=== PATIENT | male | born 1995 | race Caucasian/White ===

== ENCOUNTER 2016-12-26 11:09 | Emergency (ER) | payer MEDICAID ==
--- OUTSIDE RECORDS SUMMARY | 2016-12-26 11:46 | XMS REPORT | Continuity of Care Document ---
:1995 Author Organization [facility] ([facility]) Address [address] [place] [address] Phone [phone] Care Team Providers Name Role Phone Unavailable Primary Care Provider Unavailable Source Comments This disclosure is being made pursuant to the Care Everywhere program, applicable federal and state laws, and may not contain all informaitonavailable regarding this patient.[facility] ([facility]) Active Allergies and Adverse Reactions Not on File Current Medications Not on file Active Problems Not on file Social History Tobacco Use Types Packs/Day Years Used Date Never Assessed Plan of Care Health Maintenance Due Date Last Done Comments Hepatitis B Vaccine (1 of 3 - Primary Series) 1993 HPV Vaccine (1 of 3 - Male 3 Dose Series) 2004 Tdap Vaccine 2004 Lipid Disorder Screening 2011 MMR Vaccine 2011 Td Vaccine 2011 Varicella Vaccine (1 of 2 - Adult - No Evidence of 2011 Immunity) Influenza Vaccine: Seasonal (#1) 03/06/2016 Results from Last 3 Months Not on file
--- NOTE | 2016-12-26 12:03 | ERNOTE ---
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 He now complains of minor pain in both eyes and it hurts somewhat when he blinks. The pain and discomfort and perhaps a 2 on a scale of 1-10. Severity: Present: mild ENT Location: Present: eye (R), eye (L) Prearrival Treatment: Present: no prearrival treatment Associated Symptoms - ENT: Reports: denies symptoms Review of Systems - Review of Systems Constitutional: Present: See HPI EYE: Present: eye pain ENT: Present: no symptoms reported Respiratory: Present: no symptoms reported Cardiology: Present: no symptoms reported Gastrointestinal/Abdominal: Present: no symptoms reported Genitourinary: Present: no symptoms reported Musculoskeletal: Present: no symptoms reported Skin: Present: no symptoms reported Neurological: Present: no symptoms reported Endocrine: Present: no symptoms reported Hematologic/Lymphatic: Present: no symptoms reported Psych: Present: no symptoms reported - Patient's Past Medical History Patient History - Medical: No pertinent hx Patient History - Cardiac/Respiratory: No pertinent hx Patient History - Cancer: No Hx of Cancer Patient History - Surgical Procedures: No surgical history Patient History - Other: None - Social History Living Situations: spouse Abuse History: No History of abuse Psych History: No pertinent hx Smoking Status: Current every day smoker Have you smoked in the past 12 months: Yes Do you dip or chew tobacco: No Alcohol Use: heavy Drug Use: none - Immunizations Immunizations Up to Date: Yes History of Influenza Vaccine: Yes Physical Exam - Physical Exam General Appearance: Present: wd/wn, alert, mild distress Eye Exam: Normal inspection: bilateral, PERRL: bilateral, EOMI: bilateral Ears, Nose, Throat: Present: normal ENT inspection, H, normal pharynx Neck: Present: normal inspection, nontender Respiratory: Present: no respiratory distress, normal breath sounds, no accessory muscle use, chest nontender, lungs clear Cardiovascular/Chest: Present: regular rate, rhythm, no murmur, normal peripheral pulses Gastrointestinal/Abdominal: Present: normal bowel sounds, nontender, nondistended, soft, no organomegaly Rectal Exam: Present: deferred Back Exam: Present: normal inspection, normal range of motion Extremity Exam: Present: normal inspection, non-tender, no edema, normal range of motion Neurological Exam: Present: alert, oriented, normal mood/affect Skin Exam: Present: normal color, warm/dry Lymphatic Exam: Present: no adenopathy ED Progress - Vital Signs Patient's Vital Signs:: I have reviewed the patient's vital signs. Vital Signs: Vital Signs 12/26/16 11:20 Temperature 36.4 C L Pulse Rate 99 Respiratory 16 Rate Blood Pressure 159/95 O2 Sat by Pulse 99 Oximetry - Progress/Reassessment Chief Complaint: Eye Injury/Trauma Plan - Plan Plan: Patient prefer to have the day off to allow his eyes and opportunity to recover. He states his eyes are vastly improved from yesterday and improving rapidly already. Departure Clinical Impression: Flash burn of both eyes - Departure Disposition: Home self-care Condition: Good Instructions: How to Use Eye Drops and Eye Ointments Prescriptions: prednisoLONE ACETATE [Pred Forte 1%] 1 drop EACHEYE QID #5 ml
[2016-12-26 12:16] VITALS: BP 158/90
== END 2016-12-26 12:18 | disposition home or self-care (01) ==
LOC: ER 11:09
DX: H16.133 Photokeratitis, bilateral (principal); F17.200 Nicotine dependence, unspecified, uncomplicated; Y93.H3 Activity, building and construction; Y92.89 Other specified places as the place of occurrence of the external cause; Y99.0 Civilian activity done for income or pay

== ENCOUNTER 2017-01-22 05:26 | Emergency (ER) | payer MEDICAID ==
[2017-01-22 05:35] VITALS: BP 158/91
--- NOTE | 2017-01-22 05:43 | ERNOTE ---
Integumentary HPI - Narrative Date of Service: 01/22/17 - General Presenting Symptoms: rash Time Seen by Provider: 01/22/17 05:42 Source: patient Exam Limitations: no limitations - Immun/Allergies/Home Medications Immunizations: IMMUNIZATION HX Immunizations Up to Date Yes History of Influenza Vaccine Yes Allergies/Adverse Reactions: Allergies Allergy/AdvReac Type Severity Reaction Status Date / Time doxycycline Allergy Unknown Verified 12/26/16 11:27 Home Medications: HOME MEDICATIONS Sulfamethoxazole/Trimethoprim [Bactrim Ds] 1 tab PO BID #20 tab 01/22/17 [Last Taken Unknown] - History of Present Illness Narrative: PT C/O RASH HE JUST NOTICED ON HIS LEG. HE SAYS IT STARTED YESTERDAY AND THAT HE WAS INSIDE ALL DAY. HE DOES HAVE PETS AT HOME BUT DOES NOT THINK THEY HAVE FLEAS AND IS NOT AWARE OF ANY OTHER INSECTS IN THE HOUSE. THE RASH WAS BEEN GETTING BIGGER AND MORE SWELLING AND SEEMS TO HAVE A SMALL HEAD WITH DRAINAGE AND HE NOTICES A NEW ONE LOWER ON HIS LEG TODAY. 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 HE DENIES OTHER HEALTH PROBLEMS. Location: Reports: lower extremity Quality: Reports: painful Severity: moderate Exposure: Reports: no cause identified Associated Symptoms: Reports: denies symptoms Review of Systems - Review of Systems Constitutional: Present: See HPI Skin: Present: See HPI All Other Systems: All systems neg except as marked - Patient's Past Medical History Patient History - Medical: No pertinent hx Patient History - Cardiac/Respiratory: No pertinent hx Patient History - Cancer: No Hx of Cancer Patient History - Surgical Procedures: No surgical history Patient History - Other: None - Social History Living Situations: spouse Abuse History: No History of abuse Psych History: No pertinent hx Smoking Status: Current every day smoker Have you smoked in the past 12 months: Yes Do you dip or chew tobacco: No Alcohol Use: heavy Drug Use: none - Immunizations Immunizations Up to Date: Yes History of Influenza Vaccine: Yes Physical Exam - Physical Exam General Appearance: Present: wd/wn, alert, no apparent distress Skin Exam: Present: skin rash - HE HAS AN OVAL SHAPED SL RAISED RED AREA TO HIS LEFT LATERAL UPPER THIGH THAT IS TENDER WITH A CENTRAL TINY WHITE HEAD THAT IS DRAINING A SMALL AMOUNT OF PUS . THIS AREA IS ABOUT 6X 4 CM AND WARM TO TOUCH. THERE IS A QUARTER SIZE LESS RED , LESS SWOLLEN AREA STARTING DISTAL TO THE FIRST ABOUT 4 CM LOWER THAN THE FIRST , ALSO WITH A TINY PUNCTATE RAISED AREA . MY FIRST IMPRESSSION THAT THESE ARE BUG BITES THOUGH THEY MAY REPRESENT A FOLLICULITIS. CULTURE WAS TAKEN FROM THE CENTER OF THE LARGER AREA. ED Progress - Vital Signs Vital Signs: Vital Signs 01/22/17 05:29 Temperature 36.8 C Pulse Rate 58 L Respiratory 14 Rate Blood Pressure 158/91 O2 Sat by Pulse 97 Oximetry - Progress/Reassessment Chief Complaint: Rash Departure Clinical Impression: Folliculitis - Departure Disposition: Home self-care Condition: Good Instructions: Impetigo, Adult Additional Instructions: CLEAN AREA WITH SOAP AND WATER 2-3 TIMES A DAY. PAT DRY AND APPLY TRIPLE ANTIBIOTIC OINTMENT. TAKE THE ORAL ANTIBIOTIC DIRECTED. RECHECK IF WORSE INSTEAD OF IMPROVING. CHECK YOUR PETS TO SEE IF YOU COULD HAVE FLEAS THAT LED TO AN INFECTED LOOKING BUG BITE. THERE IS A CULTURE PENDING AND WE WILL CALL YOU IF THE RESULTS SUGGEST A DIFFERENT ANTIBIOTIC WOULD BE BETTER. Prescriptions: Sulfamethoxazole/Trimethoprim [Bactrim Ds] 1 tab PO BID #20 tab
--- OUTSIDE RECORDS SUMMARY | 2017-01-22 06:10 | XMS REPORT | Continuity of Care Document ---
:1995 Author Organization [facility] ([facility]) Address [address] [place] [address] Phone [phone] Care Team Providers Name Role Phone Unavailable Primary Care Provider Unavailable Source Comments This disclosure is being made pursuant to the Care Everywhere program, applicable federal and state laws, and may not contain all informaitonavailable regarding this patient.[facility] ([facility]) Active Allergies and Adverse Reactions Not on [...]
== END 2017-01-22 05:55 | disposition home or self-care (01) ==
LOC: ER 05:26
DX: L73.9 Follicular disorder, unspecified (principal); F17.200 Nicotine dependence, unspecified, uncomplicated

== ENCOUNTER 2017-01-24 10:31 | Emergency (ER) | payer MEDICAID ==
[2017-01-24 10:41] VITALS: BP 157/86
[2017-01-24] MEDS ORDERED: CLINDAMYCIN PHOSPHATE 150 MG/ML VIAL IM ONE ×2 (10:56→11:00)
--- NOTE | 2017-01-24 11:18 | ERNOTE ---
Integumentary HPI - Narrative Date of Service: 01/24/17 - General Presenting Symptoms: abscess Time Seen by Provider: 01/24/17 10:43 Source: patient Exam Limitations: no limitations - Immun/Allergies/Home Medications Immunizations: IMMUNIZATION HX Immunizations Up to Date Yes History of Influenza Vaccine Yes Allergies/Adverse Reactions: Allergies Allergy/AdvReac Type Severity Reaction Status Date / Time doxycycline Allergy Unknown Verified 01/24/17 10:42 Home Medications: HOME MEDICATIONS Sulfamethoxazole/Trimethoprim [Bactrim Ds] 1 tab PO BID #20 tab 01/22/17 [Last Taken Unknown] - History of Present Illness Narrative: Pt. comes in with increased redness swelling and induration around a known abscess that was drained here two days ago. Pt. was placed on Bactrim two days ago and states that this is not improving. Pt. denies any fever, SOB, CP, NVD, aggravating factors or alleviating factors despite taking tylenol. Review of Systems - Review of Systems Constitutional: Present: no symptoms reported. Absent: recent illness, fever, chills, weakness, fatigue, malaise EYE: Present: no symptoms reported ENT: Present: no symptoms reported Respiratory: Present: no symptoms reported. Absent: shortness of breath, cough , wheezing Cardiology: Present: no symptoms reported. Absent: chest pain, palpitations, edema Gastrointestinal/Abdominal: Present: no symptoms reported. Absent: nausea, vomiting, diarrhea Genitourinary: Present: no symptoms reported Musculoskeletal: Present: no symptoms reported. Absent: back pain, joint pain Skin: Present: lesions - Abscess L post leg Neurological: Present: no symptoms reported. Absent: headache, dizziness/light- headedness, numbness, tingling All Other Systems: All systems neg except as marked - Patient's Past Medical History Patient History - Medical: No pertinent hx Patient History - Cardiac/Respiratory: No pertinent hx Patient History - Cancer: No Hx of Cancer Patient History - Surgical Procedures: No surgical history Patient History - Other: None - Social History Living Situations: spouse Abuse History: No History of abuse Psych History: No pertinent hx Smoking Status: Current every day smoker Alcohol Use: heavy Drug Use: none - Immunizations Immunizations Up to Date: Yes History of Influenza Vaccine: Yes Physical Exam - Physical Exam General Appearance: Present: wd/wn, alert, no apparent distress Eye Exam: Normal inspection: bilateral, PERRL: bilateral, EOMI: bilateral Ears, Nose, Throat: Present: normal ENT inspection, normal pharynx Neck: Present: normal inspection, nontender. Absent: lymphadenopathy (R), lymphadenopathy (L) Respiratory: Present: no respiratory distress, normal breath sounds, no accessory muscle use, chest nontender, lungs clear Cardiovascular/Chest: Present: regular rate, rhythm, no murmur, normal peripheral pulses Back Exam: Present: normal inspection, normal range of motion, no CVA tenderness , no vertebral tenderness Extremity Exam: Present: non-tender, normal range of motion, no edema Neurological Exam: Present: alert, oriented, normal mood/affect, no motor/ sensory deficits Skin Exam: Present: normal color, warm/dry, other - red, erythematous, edematous lesion 3cm in diameter L post thich 0.4 mm larger than marking surounding lesion ED Progress - Date and Time Seen: Date and Time: 01/24/17 11:15 As this is worsening will give IM injection of clidamycin to help quickly eradicate MRSA and Bactrim should start working tomorrow or sunday and it had the greatest suseptibility on micro so I do not feel that changing abx completely is a good idea. - Vital Signs Patient's Vital Signs:: I have reviewed the patient's vital signs. Vital Signs: Vital Signs 01/24/17 10:37 Temperature 36.8 C Pulse Rate 73 Respiratory 14 Rate Blood Pressure 157/86 O2 Sat by Pulse 97 Oximetry - Progress/Reassessment Chief Complaint: Lower Extremity Pain/ Injury Departure Clinical Impression: MRSA (methicillin resistant Staphylococcus aureus) infection - Departure Disposition: Home self-care Condition: Good Instructions: Community-Associated MRSA, Contact Precautions, [id number], Form - Excuse from Work, School, or Physical Activity Additional Instructions: Please follow up with primary provider in 2-3 days.
== END 2017-01-24 11:44 | disposition home or self-care (01) ==
LOC: ER 10:31
DX: L02.416 Cutaneous abscess of left lower limb (principal); B95.62 Methicillin resistant Staphylococcus aureus infection as the cause of diseases classified elsewhere; F17.210 Nicotine dependence, cigarettes, uncomplicated

== ENCOUNTER 2017-01-26 19:11 | Emergency (ER) | payer MEDICAID ==
[2017-01-26] MEDS ORDERED: TETRACAINE HCL 150 DROP BTL ONE (19:25)
[2017-01-26] MEDS ORDERED: HYDROcodone/ACETAMINOPHEN 1 EACH TABLET PO ONE ×2 (20:16→20:17)
[2017-01-26] MEDS ORDERED: GENTAMICIN SULFATE 3.5 APPL TUBE EACHEYE ONE (20:17)
--- NOTE | 2017-01-26 20:20 | ERNOTE ---
ENT HPI Date of Service: 01/26/17 Presenting Symptoms: eye pain Time Seen by Provider: 01/26/17 20:04 Source: patient, family, RN notes reviewed Exam Limitations: no limitations - Immun/Allergies/Home Medications Immunizations: IMMUNIZATION HX Immunizations Up to Date Yes History of Influenza Vaccine No Allergies/Adverse Reactions: Allergies Allergy/AdvReac Type Severity Reaction Status Date / Time doxycycline Allergy Unknown Verified 01/26/17 19:21 Home Medications: HOME MEDICATIONS Sulfamethoxazole/Trimethoprim [Bactrim Ds] 1 tab PO BID #20 tab 01/22/17 [Last Taken Unknown] - History of Present Illness Narrative: 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 Reports taking a nap and then having severe eye pain when he woke up. Date (Duration): 01/26/17 ENT Location: Present: eye (R), eye (L) Prearrival Treatment: Present: no prearrival treatment Prior Treament: Reports: similar symptoms before Review of Systems - Review of Systems Constitutional: Absent: recent illness, fever, malaise EYE: Present: eye pain. Absent: eye discharge ENT: Absent: ear pain, nose congestion, sore throat Respiratory: Absent: shortness of breath, cough Cardiology: Present: no symptoms reported Gastrointestinal/Abdominal: Absent: nausea, abdominal pain Genitourinary: Present: no symptoms reported Musculoskeletal: Absent: muscle pain, neck pain Skin: Absent: rash, lesions Neurological: Absent: headache, dizziness/light-headedness Endocrine: Present: no symptoms reported Hematologic/Lymphatic: Present: no symptoms reported Psych: Present: no symptoms reported - Patient's Past Medical History Patient History - Medical: No pertinent hx Patient History - Cardiac/Respiratory: No pertinent hx Patient History - Cancer: No Hx of Cancer Patient History - Surgical Procedures: No surgical history Patient History - Other: None - Social History Living Situations: home Abuse History: No History of abuse Psych History: No pertinent hx Smoking Status: Current every day smoker Alcohol Use: heavy Drug Use: none - Immunizations Immunizations Up to Date: Yes - tetanus vaccine in 2016 History of Influenza Vaccine: No Physical Exam - Physical Exam General Appearance: Present: wd/wn, alert, mild distress Eye Exam: PERRL: bilateral, EOMI: bilateral, Photophobia: bilateral Neck: Present: normal inspection, nontender, supple Respiratory: Present: no respiratory distress, normal breath sounds, no accessory muscle use, lungs clear Cardiovascular/Chest: Present: regular rate, rhythm, no murmur, normal peripheral pulses Neurological Exam: Present: alert, oriented, normal mood/affect, no motor/ sensory deficits Skin Exam: Present: normal color, warm/dry ED Progress - Vital Signs Patient's Vital Signs:: I have reviewed the patient's vital signs. Vital Signs: Vital Signs 01/26/17 19:17 Temperature 37.2 C Pulse Rate 62 Respiratory 18 Rate Blood Pressure 158/104 O2 Sat by Pulse 98 Oximetry - Progress/Reassessment Chief Complaint: Eye Injury/Trauma Progress:: Improved Procedures Eye Location: both eyes Tetracaine Drops Administered: Yes Eye - Cornea: Bilateral: examined w/fluorescein, nml inspection Antibiotic Ointment/Drps Admin: both eyes Complications: Pt bebe procedure well Departure Clinical Impression: Flash burn of both eyes - Departure Disposition: Home Follow Up Needed Condition: Stable Additional Instructions: See your eye doctor on Sunday if symptoms have not resolved Ibuprofen for pain - 3 tablets every 6 hours with food Use eye drops as directed on label
[2017-01-26] MEDS ORDERED: oxyCODONE HCL/ACETAMINOPHEN 1 TAB TABLET ONE (20:24)
[2017-01-26] MEDS ORDERED: GENTAMICIN SULFATE 50 DROP BTL ONE (20:25)
[2017-01-26] MEDS ORDERED: HYDROcodone/ACETAMINOPHEN 1 EACH TABLET ONE (20:36)
[2017-01-26 20:48] VITALS: BP 132/84
== END 2017-01-26 20:42 | disposition home or self-care (01) ==
LOC: ER 19:11
DX: H16.133 Photokeratitis, bilateral (principal); F17.210 Nicotine dependence, cigarettes, uncomplicated; X58.XXXA Exposure to other specified factors, initial encounter